=== PATIENT | male | born 1940 | race Caucasian/White ===

== ENCOUNTER 2018-03-01 06:42 | Day surgery (SDC) | payer MEDICARE, OTHER ==
[2018-02-28 16:22] LABS: BASOPHILS % (AUTO) 0.4 % (0-1); EOSINOPHILS # (AUTO) 0.2 X10'3 (0-0.9); EOSINOPHILS % (AUTO) 2.8 % (0-6); HEMATOCRIT 43.4 % (42.0-52.0); HEMOGLOBIN 14.8 g/dl (14.0-17.9); LYMPHOCYTES # (AUTO) 1.9 X10'3 (1.1-4.8); LYMPHOCYTES % (AUTO) 30.4 % (21-51); MEAN CORPUSCULAR HEMOGLOBIN 30.8 PG (27.0-31.0); MEAN CORPUSCULAR HGB CONC 34.1 % (33.0-36.5); MEAN CORPUSCULAR VOLUME 90.4 FL (78-98); MEAN PLATELET VOLUME 9.7 FL (7.4-10.4); MONOCYTES # (AUTO) 0.6 X10'3 (0-0.9); MONOCYTES % (AUTO) 9.8 % (2-12); NEUTROPHILS # (AUTO) 3.6 X10'3 (1.8-7.7); NEUTROPHILS % (AUTO) 56.6 % (42-75); PLATELET COUNT 198 X10'3 (140-440); RED CELL DISTRIBUTION WIDTH 13.8 % (11.5-14.5); WHITE BLOOD COUNT 6.3 X10'3 (4.5-11.0)
[2018-02-28 16:31] LABS: ALBUMIN 4.1 G/DL (3.4-5.0); ANION GAP 8 (8-16); BLOOD UREA NITROGEN 18 MG/DL (7-18); BUN/CREATININE RATIO 16.7 (5.4-32.0); CALCIUM 8.8 MG/DL (8.5-10.1); CHLORIDE 102 MMOL/L (99-107); CREATININE 1.08 MG/DL (0.60-1.10); GLUCOSE 88 MG/DL (70-104); PARTIAL THROMBOPLASTIN TIME 28 SECONDS (22-32); POTASSIUM 3.7 MMOL/L (3.5-5.1); PROTHROMBIN TIME 10.5 SECONDS (9.0-12.0); SODIUM 140 MMOL/L (135-145); TOTAL CARBON DIOXIDE 29.6 MMOL/L (24-32); eGFR 66 ML/MIN
[~2018-03-01] VITALS: Ht 180.3 cm; Wt 89.4 kg
[2018-03-01] VITALS (11 sets, daily range): BP systolic 103–163; BP diastolic 50–91
[2018-03-01] MEDS ORDERED: LORazepam 0.5 MG tablet PO PRN (07:15)
[2018-03-01] MEDS ORDERED: diphenhydrAMINE 25mg capsule PO PRN (07:15)
[2018-03-01] MEDS ORDERED: normal saline 1000ml 1,000 ML IV SCH (07:15)
[2018-03-01] MEDS ORDERED: PSYL0.5215 PO (07:57)
[2018-03-01] MEDS ORDERED: ACET-2119 PO (07:57)
[2018-03-01] MEDS ORDERED: MULT-38 PO (07:57)
[2018-03-01] MEDS ORDERED: LEVO100T PO (07:57)
[2018-03-01] MEDS ORDERED: CLOP75TA35 PO (07:57)
[2018-03-01] MEDS ORDERED: VALS1TAB79 PO (07:57)
[2018-03-01] MEDS ORDERED: TRAZ-143 PO (07:57)
[2018-03-01] MEDS ORDERED: NAPR220T67 PO (07:57)
[2018-03-01] MEDS ORDERED: midazolam 2 mg/2 ml injection ONE (09:03)
[2018-03-01] MEDS ORDERED: iohexol 350 MG/ML 50ML vial IV ONE (09:03)
[2018-03-01] MEDS ORDERED: heparin 1,000unit/ml 10ml vial 10 ML ONE (09:03)
[2018-03-01] MEDS ORDERED: iohexol 350MG/ML 100ml bottle IV ONE (09:03)
[2018-03-01] MEDS ORDERED: nitroGLYCERIN-Tridil 50MG/D5W 250 ML IV ONE (09:03)
[2018-03-01] MEDS ORDERED: fentaNYL/PF 50MCG/1 ML 2ML syringe ONE (09:03)
[2018-03-01] MEDS ORDERED: LIDOcaine 1% w/EPI 1:100,000 30ml vial (MDV) ONE (09:03)
[2018-03-01] MEDS ORDERED: ibuprofen 200mg tablet PO ONE (12:50)
== END 2018-03-01 15:10 | disposition home or self-care (01) ==
LOC: SSTAY O 06:42
PROVIDERS: ATTEND Internal Medicine Cardiovascular Disease
DX: I25.118 Atherosclerotic heart disease of native coronary artery with other forms of angina pectoris (principal); I10 Essential (primary) hypertension; E03.9 Hypothyroidism, unspecified; I65.29 Occlusion and stenosis of unspecified carotid artery; Z98.890 Other specified postprocedural states; Z87.891 Personal history of nicotine dependence; Z86.79 Personal history of other diseases of the circulatory system; Z86.73 Personal history of transient ischemic attack (TIA), and cerebral infarction without residual deficits
CPT/HCPCS: 36415; 80048; 85025; 85610; 85730; 93005; 93458; 99152; 99153; A6257; A6402; C1760; C1769; J1644; J2250; J3010; J3490; J7030; Q0163; Q9967; A4620

== ENCOUNTER 2024-05-14 09:56 | Outpatient (CLI) | payer BC ==
[~2024-05-14 09:56] MED LIST: ACET-2119 PO; CLOP75TA34 PO; LEVO100T PO; MULT-38 PO; NAPR220T67 PO; PSYL0.5215 PO; TRAZ-251 PO; VALS1TAB80 PO
[2024-05-14 10:40] LABS: BILIRUBIN,URINE SMALL (Neg); CLARITY,URINE SLIGHTLY CLOUDY (Clear); COLOR,URINE YELLOW (Yellow); GLUCOSE, URINE NEGATIVE (Neg); KETONES,URINE NEGATIVE (Neg); LEUKOCYTE ESTERASE ,URINE TRACE (Neg); OCCULT BLOOD,URINE NEGATIVE (Neg); PH,URINE 5.5 (4.8-8.0); PROTEIN,URINE TRACE mg/dl (Neg); UROBILINOGEN,URINE 0.2 E.U/dL (0.2-1.0)
[2024-05-14 10:52] LABS: UA COLLECTION TYPE CLN CATCH MIDSTREAM
[2024-05-14 10:56] LABS: ALANINE AMINOTRANSFERASE 19 U/L (12-78); ALBUMIN 3.6 G/DL (3.4-5.0); ALKALINE PHOSPHATASE 78 IU/L (46-116); ANION GAP 7 (8-16); ASPARTATE AMINO TRANSFERASE 20 U/L (10-37); BILIRUBIN,TOTAL 0.6 MG/DL (0.1-1.0); BLOOD UREA NITROGEN 13 MG/DL (7-18); BUN/CREATININE RATIO 17.3 (10.0-20.0); CALCIUM 8.8 MG/DL (8.5-10.1); CHLORIDE 105 MMOL/L (99-107); CREATININE 0.75 MG/DL (0.60-1.10); GLUCOSE 91 MG/DL (70-104); POTASSIUM 3.7 MMOL/L (3.5-5.1); SODIUM 139 MMOL/L (135-145); TOTAL CARBON DIOXIDE 26.7 MMOL/L (24-32); TOTAL PROTEIN 7.2 G/DL (6.4-8.2); eGFR > 90 ML/MIN
[2024-05-14 11:05] LABS: CHOLESTEROL 127 MG/DL (0-200); HDL CHOLESTEROL 43 MG/DL (35-60); LDL CHOLESTEROL 71 MG/DL (50-100); THYROID STIMULATING HORMONE 1.31 ulU/ml (0.34-4.50); TRIGLYCERIDES 58 MG/DL (20-135)
[2024-05-14 12:12] LABS: BACTERIA,URINE FEW /HPF (Neg); RBC,URINE 0-2 /HPF (0-2); SQUAMOUS EPITHELIAL CELL,UR NONE SEEN /LPF (FEW); WBC,URINE 0-4 /HPF (0-4)
[2024-05-14 12:13] LABS: MUCUS STRANDS FEW /LPF (Neg)
[2024-05-14 12:15] LABS: NITRITES, URINE NEGATIVE (Neg)
[2024-05-14 13:08] LABS: BASOPHILS # (AUTO) 0.1 X10'3 (0-1); BASOPHILS % 1 % (0-2); EOSINOPHILS # (AUTO) 0.1 X10'3 (0-0.9); EOSINOPHILS % (AUTO) 1 % (0-5); HEMATOCRIT 39.5 % (43.5-53.7); HEMOGLOBIN 13.2 G/DL (12.5-16.3); LYMPHOCYTES # (AUTO) 1.9 X10'3 (0.6-4.1); LYMPHOCYTES % 27 % (24-44); MEAN CORPUSCULAR HEMOGLOBIN 30.7 PG (27-31.2); MEAN CORPUSCULAR HGB CONC 33.5 % (32-36); MEAN CORPUSCULAR VOLUME 91.8 FL (81-97); MONOCYTES # (AUTO) 0.8 X10'3 (0-0.9); MONOCYTES % 11 % (0-12); NEUTROPHILS # (AUTO) 4.2 X10'3 (>=1.4); PLATELET COUNT 239 X10'3 (130-400); RED BLOOD COUNT 4.31 X10'6 (4.30-5.90); RED CELL DISTRIBUTION WIDTH 13.7 % (11-16); SEGMENTED NEUTROPHILS % 61 % (36-66); WHITE BLOOD COUNT 6.9 X10'3 (4.5-11.0)
== END 2024-05-14 23:59 | disposition home or self-care (01) ==
LOC: LAB 09:56
PROVIDERS: ATTEND Family Medicine
DX: I10 Essential (primary) hypertension (principal); E78.2 Mixed hyperlipidemia; E03.9 Hypothyroidism, unspecified; N40.0 Benign prostatic hyperplasia without lower urinary tract symptoms
CPT/HCPCS: 36415; 80053; 80061; 81001; 84153; 84443